=== PATIENT | female | born 1985 | race Caucasian/White ===

== ENCOUNTER 2017-04-01 09:43 | Outpatient (CLI) | payer OTHER ==
[2017-04-01 18:40] LABS: BASOPHILS % (AUTO) 0.6 %; EOSINOPHILS % (AUTO) 0.7 %; HGB - HEMOGLOBIN 13.5 g/dL (12.0-16.0); LYMPHOCYTES # (AUTO) 1.3 10^3/uL (1.5-3.5); LYMPHOCYTES % (AUTO) 28.9 %; MEAN CORPUSCULAR HEMOGLOBIN 30.5 pg (27.0-31.0); MEAN CORPUSCULAR VOLUME 92.7 fL (81.0-99.0); MEAN PLATELET VOLUME 9.3 fL (7.9-10.8); MONOCYTES # (AUTO) 0.6 10^3/uL (0.0-1.0); MONOCYTES % (AUTO) 12.2 %; NEUTROPHILS # (AUTO) 2.7 10^3/uL (1.5-6.6); NEUTROPHILS % (AUTO) 57.6 %; NUCLEATED RED BLOOD CELLS AUTO 0.1 /100WBC; RED BLOOD COUNT 4.43 10^6/uL (4.20-5.40); RED CELL DISTRIBUTION WIDTH 13.4 % (12.0-15.0); UNCORRECTED WHITE BLOOD COUNT 4.6 x10^3/uL; WHITE BLOOD COUNT 4.6 x10^3/uL (4.8-10.8)
[2017-04-01 18:49] LABS: ALBUMIN/GLOBULIN RATIO 1.6 (1.0-2.2); BILIRUBIN,TOTAL 0.9 mg/dL (0.2-1.0); BUN - BLOOD UREA NITROGEN 11 mg/dL (6-20); CALCIUM 9.7 mg/dL (8.5-10.3); CARBON DIOXIDE - CO2 26 mmol/L (21-32); CHLORIDE 101 mmol/L (101-111); CHOL/HDL RATIO 2.4 (<4.4); CHOLESTEROL 172 mg/dL; CREATININE 0.6 mg/dL (0.4-1.0); GFR - MDRD 117 (>89); GLUCOSE 85 mg/dL (70-100); HDL CHOLESTEROL 72 mg/dL; LDL/HDL RATIO 1.1 (<4.4); POTASSIUM 4.3 mmol/L (3.5-5.0); SODIUM 136 mmol/L (135-145); TOTAL PROTEIN 7.2 g/dL (6.7-8.2); TRIGLYCERIDES 111 mg/dL; VLDL CHOLESTEROL 22 mg/dL
[2017-04-01 19:08] LABS: FERRITIN 6.8 ng/mL (11.0-306.8)
[2017-04-01 19:09] LABS: TOTAL T3 1.27 ng/mL (0.87-1.78)
[2017-04-01 19:21] LABS: THYROID STIMULATING HORMONE 1.58 uIU/mL (0.34-5.60)
[2017-04-05 06:56] LABS: T3 REVERSE 19 ng/dL (8-25)
== END 2017-04-01 09:44 | disposition home or self-care (01) ==
LOC: LAB.F 09:43
PROVIDERS: ATTEND Nurse Practitioner Family
DX: Z00.01 Encounter for general adult medical examination with abnormal findings (principal); E55.9 Vitamin D deficiency, unspecified; E78.5 Hyperlipidemia, unspecified; L63.8 Other alopecia areata; F41.9 Anxiety disorder, unspecified
CPT/HCPCS: 36415; 80053; 80061; 82306; 82728; 84436; 84439; 84443; 84480; 84481; 84482; 85025; 86376

== ENCOUNTER 2017-04-17 09:14 | Outpatient (CLI) | payer OTHER ==
[2017-04-17 18:27] LABS: IRON 51 ug/dL (28-170); TOTAL IRON BINDING CAPACITY 413 ug/dL (250-450); TRANSFERRIN 295 mg/dL (192-382)
[2017-04-17 18:42] LABS: PROLACTIN 13.14 ng/mL
[2017-04-17 19:04] LABS: FOLLICLE STIMULATING HORMONE 3.23 mIU/mL
[2017-04-17 19:05] LABS: LUTEINIZING HORMONE 6.29 mIU/mL
[2017-04-20 14:27] LABS: ANA SCREEN NEGATIVE (NEGATIVE)
[2017-04-23 12:12] LABS: TEST RESULT REPORT (())
== END 2017-04-17 09:15 | disposition home or self-care (01) ==
LOC: LAB.F 09:14
PROVIDERS: ATTEND Nurse Practitioner Family
DX: L63.9 Alopecia areata, unspecified (principal)
CPT/HCPCS: 36415; 81599; 82157; 82627; 83001; 83002; 83540; 84146; 84403; 84466; 86038; 86141

== ENCOUNTER 2024-11-05 08:23 | Inpatient (IN) ==
[2024-11-05] MEDS ORDERED: SODIUM CHLORIDE FLUSH 0.9% 10 ML SYRINGE IVP PRN (08:25)
[2024-11-05] MEDS ORDERED: NIFEdipine 10 MG CAPSULE PO PRN (08:25)
[2024-11-05] MEDS ORDERED: PROMETHAZINE 25 MG TABLET PO PRN (08:25)
[2024-11-05] MEDS ORDERED: ACETAMINOPHEN 325 MG TABLET PO PRN (08:25)
[2024-11-05] MEDS ORDERED: lidocaine 1% 20 ML MDV ID PRN (08:25)
[2024-11-05] MEDS ORDERED: METOCLOPRAMIDE 10 MG TABLET PO PRN (08:25)
[2024-11-05] MEDS ORDERED: OXYTOCIN 10 UNIT/ML VIAL IM PRN (08:25)
[2024-11-05] MEDS ORDERED: OXYTOCIN/SODIUM CHLORIDE 500 ML IV PRN (08:25)
[2024-11-05] MEDS ORDERED: METHYLERGONOVINE 0.2 MG/ML VIAL IM PRN (08:25)
[2024-11-05] MEDS ORDERED: ONDANSETRON 4 MG/2 ML VIAL IVP PRN (08:25)
[2024-11-05] MEDS ORDERED: miSOPROStoL 200 MCG TABLET BC PRN (08:25)
[2024-11-05] MEDS ORDERED: ONDANSETRON ODT 4 MG TABLET TL PRN (08:25)
[2024-11-05] MEDS ORDERED: CARBOPROST TROMETHAMINE 250 MCG/ML VIAL IM PRN (08:25)
[2024-11-05] MEDS ORDERED: TRANEXAMIC ACID IN NACL 1,000 MG/100 ML BAG IV PRN (08:25)
[2024-11-05] MEDS ORDERED: LABETALOL 20 MG/4 ML SYRINGE IVP PRN ×3 (08:25)
[2024-11-05] MEDS ORDERED: LACTATED RINGERS 1,000 ML IV PRN (08:25)
[2024-11-05] MEDS ORDERED: hydrALAZINE INJ 20 MG/ML VIAL IVP PRN ×2 (08:25)
[2024-11-05] MEDS ORDERED: AMPICILLIN 2 GM in SODIUM CHLORIDE 0.9% MINIBAG 100 ML IV SCH (08:30)
[2024-11-05] MEDS: miSOPROStoL 100 MCG TABLET BC SCH (11:23)
--- NOTE | 2024-11-05 11:38 | MISCELLANEOUS PROVIDER NOTE ---
Miscellaneous Provider Note - Note: Called for assist with PIV. Multiple failed attempts. Attempt x1 with US at L FA, 20ga IV placed. Easily aspirates and flushes, labs drawn with vacu-tainer, capped, secured. Patient tolerated without complaint.
[2024-11-05 11:53] LABS: BASOPHILS % (AUTO) 0.2 %; EOSINOPHILS % (AUTO) 0.3 %; HCT - HEMATOCRIT 43.2 % (37.0-47.0); HGB - HEMOGLOBIN 14.2 g/dL (12.0-16.0); LYMPHOCYTES # (AUTO) 1.3 10^3/uL (1.5-3.5); LYMPHOCYTES % (AUTO) 12.6 %; MEAN CORPUSCULAR HEMOGLOBIN 31.4 pg (27.0-31.0); MEAN CORPUSCULAR HGB CONC 32.9 g/dL (32.0-36.0); MEAN CORPUSCULAR VOLUME 95.6 fL (81.0-99.0); MEAN PLATELET VOLUME 12.3 fL (7.9-10.8); MONOCYTES # (AUTO) 0.8 10^3/uL (0.0-1.0); MONOCYTES % (AUTO) 8.2 %; NEUTROPHILS # (AUTO) 7.9 10^3/uL (1.5-6.6); NEUTROPHILS % (AUTO) 78.1 %; PLT - PLATELET COUNT 193 10^3/uL (130-450); RED BLOOD COUNT 4.52 10^6/uL (4.20-5.40); WHITE BLOOD COUNT 10.2 x10^3/uL (4.8-10.8)
[2024-11-05 12:10] LABS: ALBUMIN 3.9 g/dL (3.2-5.5); ALBUMIN/GLOBULIN RATIO 1.4 (1.0-2.2); BILIRUBIN,TOTAL 0.4 mg/dL (0.2-1.0); CALCIUM 9.7 mg/dL (8.5-10.3); CREATININE 0.5 mg/dL (0.6-1.3); POTASSIUM 3.8 mmol/L (3.5-4.5); TOTAL PROTEIN 6.7 g/dL (6.4-8.9); URIC ACID 4.3 mg/dL (2.3-6.6)
--- NOTE | 2024-11-05 13:50 | HISTORY & PHYSICAL EXAMINATION ---
Admit History Smoking Status: Never smoker Other Maternal History Other Maternal History: HPI: This 39 yo @ 41+1 weeks by LMP and confirmed by first trimester ultrasound. She was able to get sleep last night but had some intermittent contractions. She's here today for medical induction of labor. She had an elevated BP in the clinic and a second elevated BP upon admission. Urine PCR 0.3, giving her a diagnosis of preEclampsia without severe features. She was examined yesterday in the clinic with an SVE of 2/40/-2, anterior, soft, vtx, intact. She had not felt much had changed since yesterday and declined a repeat exam. SIMEON SCORE:7. She was hoping for a natural onset of labor, but she was amenable to coming in for IOL giving the increased concerns. She has been a midwifery patient, first of [facility]RI[facility] T[facility] at [facility] then transitioned for continuity of midwifery care to [facility] in May,. Her and her , Eloy, have been active participants in group care and completed the prepared childbirth class at [facility]. has remained uncomplicated with the exception of AMA until the last few days. ROS: No Headache, visual changes or right upper quadrant abdominal pain. Denies significant N/V. Denies urinary urgency or dysuria. All other symptoms reviewed and were negative except per HPI. In the event of an emergency, accepts the administration of blood products. Labs: H&H: 14.2/43.2, PLT 193, Serum creatinine 0.5AST 24, ALT 19, uric acid 4.3, LDH 161 Last u/s EFW: 83% @ 20+5 weeks gestation Total maternal weight gain: 37# Specific Issues/Plans LMP: 01/22/24 NAOMI by LMP: 10/28/2024 US:03/16/24 8w4d c/w dates (NAOMI by U/S 10/23/2024) Final NAOMI: 10/28/24 Problems: AMA on LDASA Medical Hx: No significant Surgical Hx: None Social Hx: Monogamous with male partner. Denies current use of alcohol or tobacco, marijuana or other recreational drugs. Reports that she is safe in current relationship. Family Hx: Denies family history of congenital anomalies, Cystic Fibrosis or chromosomal abnormalities ALLERGIES: NKDA RX: Aspirin, PNV Pre- Weight:158 BMI: 23.3 Blood type: O- Rhogam GIVEN 08/12/24 judson Rh: neg Antibody: neg CBC: PLT 283 HCT 45.2 HGB 14.9 RUB:immune VZV: immune HBsAg: Neg HepC: Neg RPR/AB-EIA: NR HIV: Neg PAP:02/2023 - normal GC/CT: COMPLETE @ 36wks HSV: Denies is self and partner Genetic testing: neg Covid: x 2, no booster. Has had covid twice in addition Flu: declined FAS: WNL Placenta: anterior, no previa Cord: 3VC CLARKE: 15.7cm EFW: 403g (83%tile) 50gm OGCT: 152 3HR GTT: ordered 08/12 TDAP: 08/31/2024 RSV: Breast Pump: 08/31/2024 Antibody screen:negative 08/08 3rd trimester H/H 11.9/36.1 PLT 223 3rd trimester RPR- negative GBS: 10/04/2024 positive Delivery plan: Desires unmedicated, low intervention delivery; , has Learning Specialist (Larissa) MOD: Anticipate Contraception: undecided. considering vasectomy Physical exam: Normocephalic, atraumatic Heart RRR w/o M/G/R Lungs CTAB Abdomen gravid, soft, nontender. EFW 3700 FHR baseline 140's, moderate variability, + accelerations, no decelerations Contractions palpate mild, q 1-4.5minutes soft resting tone SVE 2/40/-2, intact, soft, cephalic in office yesterday by BSUS. Has been cephalic through third trimester. Bilateral LE's 1+ to feet Mood is good, anxious but good. Assessment: 39 yo @ 41+1 weeks gestation by 8+4 week ultrasound Preeclampsia without severe features Post dates Advanced maternal age FHR 140's Cat I GBS POSITIVE Plan: Medical IOL for preeclampsia IV placement then Misoprostol administration Will begin with misoprostol 25mcg BC q 4 hours as long as administration can be done safely within unit protocol GBS+ will plan to start ampicilin with active labor or ROM RH negative. Will need cord blood and rhogam/ work up if indicated Minimize SVE as they are distressing to Lynnette Plans for taking placenta home to plant in garden RN team to contact with any concern for or maternal wellbeing. Support pain management or unmedicated labor options as guided by Lynnette. Baby Med plan: Okay with Vitamin K and erythromycin. Holding on hepatitis B vaccine. Reviewed plan of care with design printer [facility] Meds/Allgy Home Medications Ambulatory Orders Medication Instructions Recorded Confirmed aspirin 81 mg tablet,delayed 81 mg PO QDAY 07/06/24 11/06/24 release (Adult Aspirin Regimen) vitamins no.159-iron 1 tab PO DAILY 07/06/24 11/06/24 fumarate 28 mg-folic acid 800 mcg tablet ( Vitamin) cholecalciferol (vitamin D3) 100 100 mcg PO QDAY 10/11/24 11/06/24 mcg (4,000 unit) tablet magnesium 200 mg tablet 200 mg PO QDAY 10/11/24 11/06/24 Allergies Allergies Allergy/AdvReac Type Severity Reaction Status Date / Time pollen extracts Allergy Unknown Unknown Verified 11/01/24 16:49 molds Allergy Unknown Unknown Uncoded 11/01/24 16:49 PFSH Active Problems All Active Problems (Updated 11/04/24 @ 14:49 by Jazz Butler RN) Post-dates (Acute) Rh negative status during (Acute) Elevated blood pressure reading in office without diagnosis of hypertension (Acute) Advanced maternal age (AMA) in (Acute) Pelvic pain in antepartum period in third trimester (Acute) (Acute) Normal first in second trimester (Acute) Supervision of normal first in second trimester (Acute) Medical History Medical History (Updated 11/04/24 @ 14:49 by Jazz Butler RN) Painful menstrual periods Panic disorder Anxiety Depression Mental health disorder Autoimmune disease Family History Family History (Updated 07/28/24 @ 09:29 by Alicia Rogers MA) Grandmother Congenital heart disease Diabetes Thyroid disease Grandfather High blood pressure CVA (cerebral vascular accident) Aunt CVA (cerebral vascular accident) High blood pressure Uncle CVA (cerebral vascular accident) High blood pressure Father Cancer High blood pressure Mother Depressed History of multiple miscarriages Social History Social History (Updated 07/06/24 @ 18:36 by Anisa Crespo MA) Smoking Status: Never smoker Do you dip or chew tobacco?: No ETOH Use: None ETOH Use Details: stopped for Substance Use: former substance user Substance Use Details: marijuana Plan for Labor Plan For Labor I expect patient to be DC'd or transferred within 96 hours.: Yes Conclusion/Plan Lab Results 11/05/24 11:25 11/05/24 11:25
--- NOTE | 2024-11-05 20:58 | PROVIDER PROGRESS NOTE ---
Subjective Prog Note Date Prog Note Date: 11/05/24 Prog Note Time: 21:00 Subjective Subjective: S/O: Doing well. Breathing through contractions. Doing nipple stim as well. Has been very active in room. Feeling increasing discomfort with contractions. Category I tracing. + accelerations, - decelerations. S/P x2 doses of 25mcg misoprostol. Overall reassuring with moderate variability maintained throughout. Contractions palpate mild-moderate intermittently with soft resting tone. Lynette regularly. q 2-3 minutes. more discomfort and breathing through contractions. Declines SVE. A: 39 yo @ 41+1wks gestation by LMP c/w 8+4 wk U/S MEDICAL IOL FHR Category I PreElamsia without severe features AMA GBS Positive Rh Neg P: Will hold on misoprostol until 2300 if pain worse, RN will do SVE. If pain subsides will plan for another 25mcg BC misoprostol. Continuous monitoring. Support Lynnette's desires for low intervention/ unmedicated delivery. If she changes her position on pain management, will support based on her request Current Medications Current Medications Current Medications: Current Medications Generic Name Dose Route Start Last Admin Trade Name Freq PRN Reason Stop Dose Admin Acetaminophen 650 mg 11/05/24 08:25 Acetaminophen 325 Mg Tablet PO Q6H PRN Mild Pain or Fever>38C(100.4F) Carboprost Tromethamine 250 mcg 11/05/24 08:25 Carboprost Tromethamine 250 Mcg/Ml Vial IM 11/10/24 08:26 Q15M PRN Step 4: Hemorrhage protocol Hydralazine HCl 5 - 20 mg 11/05/24 08:25 Hydralazine Inj 20 Mg/Ml Vial IVP Q20M PRN SBP >160 or DBP >110 Protocol Hydralazine HCl 10 mg 11/05/24 08:25 Hydralazine Inj 20 Mg/Ml Vial IVP 11/10/24 08:26 .ONCE PRN Step 9 of Labetalol protocol Protocol Lactated Ringer's 1,000 mls @ 100 mls/hr 11/05/24 08:25 Lr IV .Q10H PRN Save for active labor Oxytocin/Sodium Chloride 500 mls @ 999 mls/hr 11/05/24 08:25 Pitocin/Sodium Chloride IV 11/10/24 08:26 PRN PRN POST- HEMORR PREVENTION Protocol 999 MILLIUNIT/MIN Tranexamic Acid 1,000 mg in 100 mls @ 600 mls/hr 11/05/24 08:25 Tranexamic 1,000 Mg/100ml-Nacl IV 11/10/24 08:26 .ONCE PRN EBL >1200mL and within 3hr Ampicillin Sodium 1 gm/ Sodium 100 mls @ 200 mls/hr 11/05/24 09:00 Chloride IV Q4H LJ Labetalol HCl 20 - 80 mg 11/05/24 08:25 Labetalol 20 Mg/4 Ml Syringe IVP Q10M PRN SBP >160 or DBP >110 Protocol Labetalol HCl 20 mg 11/05/24 08:25 Labetalol 20 Mg/4 Ml Syringe IVP 11/10/24 08:26 .ONCE PRN Step 9 of nifedipine protocol Protocol Lidocaine HCl 20 ml 11/05/24 08:25 Lidocaine 1% 20 Ml Mdv ID 11/10/24 08:26 .ONCE PRN PERINEAL REPAIR Methylergonovine Maleate 0.2 mg 11/05/24 08:25 Methylergonovine 0.2 Mg/Ml Vial IM 11/10/24 08:26 .ONCE PRN Step 2: Hemorrhage protocol Metoclopramide HCl 10 mg 11/05/24 08:25 Metoclopramide 10 Mg Tablet PO Q6H PRN Nausea / Vomiting Misoprostol 25 mcg 11/05/24 09:00 11/05/24 15:44 Misoprostol 100 Mcg Tablet BC 25 mcg Q4HR LJ Administration Misoprostol 800 mcg 11/05/24 08:25 Misoprostol 200 Mcg Tablet BC 11/10/24 08:26 .ONCE PRN Step 3: Hemorrhage protocol Nifedipine 10 - 20 mg 11/05/24 08:25 Nifedipine 10 Mg Capsule PO Q20M PRN SBP >160 or DBP >110 Protocol Ondansetron HCl 4 mg 11/05/24 08:25 Ondansetron Odt 4 Mg Tablet TL Q4HR PRN Nausea / Vomiting Ondansetron HCl 4 mg 11/05/24 08:25 Ondansetron 4 Mg/2 Ml Vial IVP Q4HR PRN Nausea / Vomiting Oxytocin 10 unit 11/05/24 08:25 Oxytocin 10 Unit/Ml Vial IM 11/10/24 08:26 .ONCE PRN Step one: If no IV access Promethazine HCl 25 mg 11/05/24 08:25 Promethazine 25 Mg Tablet PO Q6H PRN Nausea / Vomiting Sodium Chloride 10 ml 11/05/24 09:00 Sodium Chloride Flush 0.9% 10 Ml Syringe IVP 0100,0900,1700 LJ Sodium Chloride 10 ml 11/05/24 08:25 Sodium Chloride Flush 0.9% 10 Ml Syringe IVP PRN PRN NEEDED PER PROVIDER ORDERS Objective Lab Results 11/05/24 11:25 11/05/24 11:25 Other Labs: Lab Results x24hrs 11/05/24 11/05/24 Range/Units 11:58 11:25 WBC 10.2 (4.8-10.8) x10^3/uL RBC 4.52 (4.20-5.40) 10^6/uL Hgb 14.2 (12.0-16.0) g/dL Hct 43.2 (37.0-47.0) % MCV 95.6 (81.0-99.0) fL MCH 31.4 H (27.0-31.0) pg MCHC 32.9 (32.0-36.0) g/dL RDW 13.0 (12.0-15.0) % Plt Count 193 (130-450) 10^3/uL MPV 12.3 H (7.9-10.8) fL Neut # (Auto) 7.9 H (1.5-6.6) 10^3/uL Lymph # (Auto) 1.3 L (1.5-3.5) 10^3/uL [place] # (Auto) 0.8 (0.0-1.0) 10^3/uL Eos # (Auto) 0.0 (0.0-0.7) 10^3/uL Baso # (Auto) 0.0 (0.0-0.1) 10^3/uL Absolute Nucleated RBC 0.00 x10^3/uL Nucleated RBC % 0.0 /100WBC Sodium 134 L (135-145) mmol/L Potassium 3.8 (3.5-4.5) mmol/L Chloride 102 (101-111) mmol/L Carbon Dioxide 23 (21-32) mmol/L Anion Gap 9.0 (6-13) BUN 6 (6-20) mg/dL Creatinine 0.5 L (0.6-1.3) mg/dL Estimated GFR (MDRD) 137 (>89) Glucose 80 (74-104) mg/dL Uric Acid 4.3 (2.3-6.6) mg/dL Calcium 9.7 (8.5-10.3) mg/dL Total Bilirubin 0.4 (0.2-1.0) mg/dL AST 24 (10-42) IU/L ALT 19 (10-60) IU/L Alkaline Phosphatase 232 H (42-121) IU/L Lactate Dehydrogenase 161 (140-271) IU/L Total Protein 6.7 (6.4-8.9) g/dL Albumin 3.9 (3.2-5.5) g/dL Globulin 2.8 (2.1-4.2) g/dL Albumin/Globulin Ratio 1.4 (1.0-2.2) Blood Type O NEGATIVE Blood Type Recheck O NEGATIVE Antibody Screen NEGATIVE
[2024-11-06] MEDS ORDERED: AMPICILLIN 2 GM VIAL IV ONE (00:47)
[2024-11-06] MEDS: AMPICILLIN 2 GM in SODIUM CHLORIDE 0.9% MINIBAG 100 ML IV ONE ×2 (02:11→04:39)
[2024-11-06] MEDS: AMPICILLIN 1 GM in SODIUM CHLORIDE 0.9% MINIBAG 100 ML IV SCH ×2 (02:11→08:50)
[2024-11-06] MEDS: SODIUM CHLORIDE FLUSH 0.9% 10 ML SYRINGE IVP SCH (02:11)
--- NOTE | 2024-11-06 09:20 | PROVIDER PROGRESS NOTE ---
Subjective Prog Note Date Prog Note Date: 11/06/24 Prog Note Time: 09:18 Subjective Subjective: S: Breathing more and more through contractions. Feeling distinctly more uncomfortable. No other misoprostol given throughout the night. Antibiotics started at 0500 for GBS prophalaxis. O:5/70/-2, head well applied to cervix. Declined membrane sweep and AROM. Category I FHT, lex q 2-3.5, palpating moderately A: 39 yo @ 41+2 wks gestation by LMP c/w 8+4 wk U/S MEDICAL IOL PreEclampsia without severe features FHR Category I GBS POSITIVE - prophalyxis initiated at 0500. RH Neg P: Significant cervical change, regular contractions and increasing pain with contractions. Will plan to introduce intervention with cessation of progress. support preferences while moving towards delivery encourage frequent positional changes Anticipate . Current Medications Current Medications Current Medications: Current Medications Generic Name Dose Route Start Last Admin Trade Name Freq PRN Reason Stop Dose Admin Acetaminophen 650 mg 11/05/24 08:25 Acetaminophen 325 Mg Tablet PO Q6H PRN Mild Pain or Fever>38C(100.4F) Carboprost Tromethamine 250 mcg 11/05/24 08:25 Carboprost Tromethamine 250 Mcg/Ml Vial IM 11/10/24 08:26 Q15M PRN Step 4: Hemorrhage protocol Hydralazine HCl 5 - 20 mg 11/05/24 08:25 Hydralazine Inj 20 Mg/Ml Vial IVP Q20M PRN SBP >160 or DBP >110 Protocol Hydralazine HCl 10 mg 11/05/24 08:25 Hydralazine Inj 20 Mg/Ml Vial IVP 11/10/24 08:26 .ONCE PRN Step 9 of Labetalol protocol Protocol Lactated Ringer's 1,000 mls @ 100 mls/hr 11/05/24 08:25 Lr IV .Q10H PRN Save for active labor Oxytocin/Sodium Chloride 500 mls @ 999 mls/hr 11/05/24 08:25 Pitocin/Sodium Chloride IV 11/10/24 08:26 PRN PRN POST- HEMORR PREVENTION Protocol 999 MILLIUNIT/MIN Tranexamic Acid 1,000 mg in 100 mls @ 600 mls/hr 11/05/24 08:25 Tranexamic 1,000 Mg/100ml-Nacl IV 11/10/24 08:26 .ONCE PRN EBL >1200mL and within 3hr Ampicillin Sodium 1 gm/ Sodium 100 mls @ 200 mls/hr 11/06/24 08:00 11/06/24 08:50 Chloride IV 200 mls/hr Q4H LJ Administration Labetalol HCl 20 - 80 mg 11/05/24 08:25 Labetalol 20 Mg/4 Ml Syringe IVP Q10M PRN SBP >160 or DBP >110 Protocol Labetalol HCl 20 mg 11/05/24 08:25 Labetalol 20 Mg/4 Ml Syringe IVP 11/10/24 08:26 .ONCE PRN Step 9 of nifedipine protocol Protocol Lidocaine HCl 20 ml 11/05/24 08:25 Lidocaine 1% 20 Ml Mdv ID 11/10/24 08:26 .ONCE PRN PERINEAL REPAIR Methylergonovine Maleate 0.2 mg 11/05/24 08:25 Methylergonovine 0.2 Mg/Ml Vial IM 11/10/24 08:26 .ONCE PRN Step 2: Hemorrhage protocol Metoclopramide HCl 10 mg 11/05/24 08:25 Metoclopramide 10 Mg Tablet PO Q6H PRN Nausea / Vomiting Misoprostol 25 mcg 11/05/24 09:00 11/06/24 02:13 Misoprostol 100 Mcg Tablet BC Not Given Q4HR [facility] Misoprostol 800 mcg 11/05/24 08:25 Misoprostol 200 Mcg Tablet BC 11/10/24 08:26 .ONCE PRN Step 3: Hemorrhage protocol Nifedipine 10 - 20 mg 11/05/24 08:25 Nifedipine 10 Mg Capsule PO Q20M PRN SBP >160 or DBP >110 Protocol Ondansetron HCl 4 mg 11/05/24 08:25 Ondansetron Odt 4 Mg Tablet TL Q4HR PRN Nausea / Vomiting Ondansetron HCl 4 mg 11/05/24 08:25 Ondansetron 4 Mg/2 Ml Vial IVP Q4HR PRN Nausea / Vomiting Oxytocin 10 unit 11/05/24 08:25 Oxytocin 10 Unit/Ml Vial IM 11/10/24 08:26 .ONCE PRN Step one: If no IV access Promethazine HCl 25 mg 11/05/24 08:25 Promethazine 25 Mg Tablet PO Q6H PRN Nausea / Vomiting Sodium Chloride 10 ml 11/05/24 09:00 11/06/24 04:30 Sodium Chloride Flush 0.9% 10 Ml Syringe IVP 10 ml 0100,0900,1700 LJ Administration Sodium Chloride 10 ml 11/05/24 08:25 Sodium Chloride Flush 0.9% 10 Ml Syringe IVP PRN PRN NEEDED PER PROVIDER ORDERS Objective Vital Signs/Intake & Output Intake & Output: Intake & Output 11/03/24 11/04/24 11/05/24 11/06/24 23:59 23:59 23:59 23:59 Intake Total 100 / 100 Balance 100 / 100 Lab Results 11/05/24 11:25 11/05/24 11:25 Other Labs: Lab Results x24hrs 11/05/24 11/05/24 Range/Units 11:58 11:25 WBC 10.2 (4.8-10.8) x10^3/uL RBC 4.52 (4.20-5.40) 10^6/uL Hgb 14.2 (12.0-16.0) g/dL Hct 43.2 (37.0-47.0) % MCV 95.6 (81.0-99.0) fL MCH 31.4 H (27.0-31.0) pg MCHC 32.9 (32.0-36.0) g/dL RDW 13.0 (12.0-15.0) % Plt Count 193 (130-450) 10^3/uL MPV 12.3 H (7.9-10.8) fL Neut # (Auto) 7.9 H (1.5-6.6) 10^3/uL Lymph # (Auto) 1.3 L (1.5-3.5) 10^3/uL [place] # (Auto) 0.8 (0.0-1.0) 10^3/uL Eos # (Auto) 0.0 (0.0-0.7) 10^3/uL Baso # (Auto) 0.0 (0.0-0.1) 10^3/uL Absolute Nucleated RBC 0.00 x10^3/uL Nucleated RBC % 0.0 /100WBC Sodium 134 L (135-145) mmol/L Potassium 3.8 (3.5-4.5) mmol/L Chloride 102 (101-111) mmol/L Carbon Dioxide 23 (21-32) mmol/L Anion Gap 9.0 (6-13) BUN 6 (6-20) mg/dL Creatinine 0.5 L (0.6-1.3) mg/dL Estimated GFR (MDRD) 137 (>89) Glucose 80 (74-104) mg/dL Uric Acid 4.3 (2.3-6.6) mg/dL Calcium 9.7 (8.5-10.3) mg/dL Total Bilirubin 0.4 (0.2-1.0) mg/dL AST 24 (10-42) IU/L ALT 19 (10-60) IU/L Alkaline Phosphatase 232 H (42-121) IU/L Lactate Dehydrogenase 161 (140-271) IU/L Total Protein 6.7 (6.4-8.9) g/dL Albumin 3.9 (3.2-5.5) g/dL Globulin 2.8 (2.1-4.2) g/dL Albumin/Globulin Ratio 1.4 (1.0-2.2) Blood Type O NEGATIVE Blood Type Recheck O NEGATIVE Antibody Screen NEGATIVE
--- NOTE | 2024-11-06 12:38 | PHARMACY PROGRESS NOTE ---
Best Possible Medication History Admit Date and Time: 11/05/24 0826 Home Medications Medication Instructions Recorded Confirmed Type aspirin 81 mg tablet,delayed 81 mg PO QDAY 07/06/24 11/06/24 History release (Adult Aspirin Regimen) vitamins no.159-iron 1 tab PO DAILY 07/06/24 11/06/24 History fumarate 28 mg-folic acid 800 mcg tablet ( Vitamin) cholecalciferol (vitamin D3) 100 100 mcg PO QDAY 10/11/24 11/06/24 History mcg (4,000 unit) tablet magnesium 200 mg tablet 200 mg PO QDAY 10/11/24 11/06/24 History Processed by: Pharmacy Medications reviewed in ED?: No Medication History completed: Yes Patient Interview: Completed Secondary Source(s): Insurance records [facility] Statement: Per [facility] insurance records and RN interview. As the person ultimately responsible for medication therapy, providers are able to order a medication from an existing home medication list in [facility] via the "Reconcile Routine" prior to Confirmation of that medication by applications support specialist. Such practice is discouraged except when the physician, in their clinical judgment, deems that a medical need exists for a medication without regard to previous use.
--- NOTE | 2024-11-06 18:15 | PROVIDER PROGRESS NOTE ---
Labor Progress Note Labor Progress Note Labor Progress Note/Additional Text: /-2, AROM, scant amount of clear fluid, bloody show to glove BP have been overall WNL Continues to labor unmedicated, brief use of nitrous oxide. Increased swelling but limited to feet. No headaches or changes to vision, no RUQ pain Plan: Contractions spacing out. Discussed introducing oxytocin to bring contractions closer together.
[2024-11-06] MEDS ORDERED: LIDOCAINE JELLY 2% 6 ML JEL.PF.APP TOP PRN (18:23)
--- NOTE | 2024-11-06 19:13 | PROVIDER PROGRESS NOTE ---
Labor Progress Note Labor Progress Note Labor Progress Note/Additional Text: SVE unchanged from previous exam /-2 at time of AROM very discouraged. Open to pitocin augmentation to increase power behind the contractions. Will begin low dose pitocin per unit protocol
[2024-11-06] MEDS: LACTATED RINGERS 1,000 ML IV PRN (19:20)
[2024-11-06] MEDS: OXYTOCIN/SODIUM CHLORIDE 500 ML IV SCH (19:21)
[2024-11-06] MEDS ORDERED: ROPIVACAINE 0.2% 200 MG/100 ML BAG EP ONE (21:20)
[2024-11-06] MEDS ORDERED: LIDOCAINE 2%-EPI 1:100000 20 ML MDV ONE (21:20)
[2024-11-06] MEDS ORDERED: diphenhydrAMINE INJ 50 MG/ML VIAL IVP PRN (22:07)
[2024-11-06] MEDS ORDERED: ePHEDrine 50 MG/ML VIAL IVP PRN (22:07)
[2024-11-06] MEDS ORDERED: ONDANSETRON 4 MG/2 ML VIAL IVP PRN (22:07)
[2024-11-06] MEDS ORDERED: NALOXONE 0.4 MG/ML VIAL IVP PRN (22:07)
[2024-11-06] MEDS ORDERED: NALBUPHINE 10 MG/ML AMP IVP PRN (22:07)
[2024-11-06] MEDS ORDERED: METOCLOPRAMIDE 10 MG/2 ML VIAL IVP PRN (22:07)
[2024-11-06] MEDS ORDERED: LACTATED RINGERS 500 ML IV ONE (22:07)
--- NOTE | 2024-11-06 22:09 | ANESTHESIA PROCEDURE NOTE ---
Pre-Anesthesia VS, & Labs Diagnosis Surgical Diagnosis:: term labor Procedure Procedure: epidural for NPO NPO: >8 hours Last Fluid Intake: t/o day Last Food Intake: dinner Is Patient ?: Yes Lab Results Current Lab Results: Laboratory Tests 11/05/24 11:58: Blood Type Recheck O NEGATIVE 11/05/24 11:25: WBC 10.2, RBC 4.52, Hgb 14.2, Hct 43.2, MCV 95.6, MCH 31.4 H, MCHC 32.9, RDW 13.0, Plt Count 193, MPV 12.3 H, Neut # (Auto) 7.9 H, Lymph # (Auto) 1.3 L, [place] # (Auto) 0.8, Eos # (Auto) 0.0, Baso # (Auto) 0.0, Absolute Nucleated RBC 0.00, Nucleated RBC % 0.0, Sodium 134 L, Potassium 3.8, Chloride 102, Carbon Dioxide 23, Anion Gap 9.0, BUN 6, Creatinine 0.5 L, Estimated GFR (MDRD) 137, Glucose 80, Uric Acid 4.3, Calcium 9.7, Total Bilirubin 0.4, AST 24, ALT 19, Alkaline Phosphatase 232 H, Lactate Dehydrogenase 161, Total Protein 6.7, Albumin 3.9, Globulin 2.8, Albumin/Globulin Ratio 1.4, Blood Type O NEGATIVE, Antibody Screen NEGATIVE Lab results reviewed: Yes 11/05/24 11:25 11/05/24 11:25 Meds/Allgy Home Medications Ambulatory Orders Medication Instructions Recorded Confirmed aspirin 81 mg tablet,delayed 81 mg PO QDAY 07/06/24 11/06/24 release (Adult Aspirin Regimen) vitamins no.159-iron 1 tab PO DAILY 07/06/24 11/06/24 fumarate 28 mg-folic acid 800 mcg tablet ( Vitamin) cholecalciferol (vitamin D3) 100 100 mcg PO QDAY 10/11/24 11/06/24 mcg (4,000 unit) tablet magnesium 200 mg tablet 200 mg PO QDAY 10/11/24 11/06/24 Allergies Allergies Allergy/AdvReac Type Severity Reaction Status Date / Time pollen extracts Allergy Unknown Unknown Verified 11/01/24 16:49 molds Allergy Unknown Unknown Uncoded 11/01/24 16:49 PFSH Active Problems All Active Problems (Updated 11/04/24 @ 14:49 by Jazz Butler, BRET) Post-dates (Acute) Rh negative status during (Acute) Elevated blood pressure reading in office without diagnosis of hypertension (Acute) Advanced maternal age (AMA) in (Acute) Pelvic pain in antepartum period in third trimester (Acute) (Acute) Normal first in second trimester (Acute) Supervision of normal first in second trimester (Acute) Medical History Medical History (Updated 11/04/24 @ 14:49 by Jazz Butler RN) Painful menstrual periods Panic disorder Anxiety Depression Mental health disorder Autoimmune disease Surgical History Surgical History (Updated 11/06/24 @ 22:08 by Smooth Greene CRNA) [place] teeth extracted Family History Family History (Updated 07/28/24 @ 09:29 by Alicia Rogers MA) Grandmother Congenital heart disease Diabetes Thyroid disease Grandfather High blood pressure CVA (cerebral vascular accident) Aunt CVA (cerebral vascular accident) High blood pressure Uncle CVA (cerebral vascular accident) High blood pressure Father Cancer High blood pressure Mother Depressed History of multiple miscarriages Social History Social History (Updated 07/06/24 @ 18:36 by Anisa Crespo MA) Smoking Status: Never smoker Do you dip or chew tobacco?: No ETOH Use: None ETOH Use Details: stopped for Substance Use: former substance user Substance Use Details: marijuana Anesthesia Exam (Expanded) Exam General: Alert, Oriented x3 and Mild distress Dental: WNL Mouth Openin Fingerbreadth Neck Mobility: Normal Mallampati classification: II Respiratory: No respiratory distress Cardiovascular: Regular rate Neurological: Normal speech Mental/Cognitive Status: Alert/Oriented X3 and Normal for patient Plan Plan Anesthesia Type: Epidural Consent for Procedure(s) Verified and Reviewed: Yes Code Status: Attempt Resuscitation ASA Classification ASA classification: 2-Mild systemic disease Is this case an emergency?: No
[2024-11-07] MEDS: ROPIVACAINE 0.2% 200 MG/100 ML BAG EP PRN (03:54)
--- NOTE | 2024-11-07 04:01 | DELIVERY NOTE ---
Delivery Note Delivery Comments (Free Text/Narrative) Delivery Comments (Free Text/Narrative): This 39-year-old, @ 41+3 weeks gestation by 8+4 week ultrasound/ LMP presented on the morning of 11/05/2024 for medical induction of labor for prec- eclampsia diagnosis. Cervix was estimated unchanged from the clinic /3, and Vertex presentation by BSUS and exam. Ramon score 7. GBS positive, treated. Misprostol 25mcg BC x2 doses, oxytocin maximum infusion of 8mu/min. . FHR pattern demonstrated 140 baseline in a category I prior to second stage. Normal labor course. Epidural placed upon maternal request. AROM occurred @ approximately 1730 on 11/06/2024. Initially minimal fluid but later thin to moderate meconium. She then progressed to complete/complete @ 0152 on 11/07/2024 and second stage began. Pediatrics and respiratory therapy were asked to stand by for delivery. : Normal spontaneous vaginal delivery of a viable female on 11/07/2024 @ 0434. The was placed on maternal abdomen, stimulated, dried and placed skin to skin. Apgars 8 & 9 @ 1 & 5 minutes. The umbilical cord was clamped after approximately 1 minute of delayed cord clamping. It was doubly clamped by delivering provider and cut by FOB. 3VC. Cord blood was obtained. Fundal massage and gentle cord traction applied for active management of the third stage, placenta delivered spontaneously and intact and appeared normal within 10 minutes of delivery. EBL 250cc. Placenta was not sent to pathology. Pitocin administered via IV for hemostasis and allowed to run freely. Uterine massage was performed until uterus was deemed firm. weight pending at this time. Inspection of the perineum noted an 1st degree midline laceration. The laceration was repaired under epidural anesthesia with running 3-0 vicryl rapide, repaired in standards fashion under sterile conditions. Upon re- inspection the patient was hemostatic. Uterus again massaged and found to be firm. Needle and sponge counts were correct. Uterine fundus firm and there is no excessive bleeding. Tissues well approximated. Skin to skin initiated. Family bonding well. Both mother and baby are in stable condition.
[2024-11-07] MEDS ORDERED: NALOXONE 0.4 MG/ML VIAL IVP PRN (05:01)
[2024-11-07] MEDS ORDERED: hydrALAZINE INJ 20 MG/ML VIAL IVP PRN ×2 (05:01)
[2024-11-07] MEDS ORDERED: NIFEdipine 10 MG CAPSULE PO PRN (05:01)
[2024-11-07] MEDS ORDERED: OXYTOCIN/SODIUM CHLORIDE 500 ML IV PRN (05:01)
[2024-11-07] MEDS ORDERED: LABETALOL 5 MG/1 ML 20 ML MDV IVP PRN (05:01)
[2024-11-07] MEDS ORDERED: LABETALOL 20 MG/4 ML SYRINGE IVP PRN ×2 (05:01)
[2024-11-07] MEDS ORDERED: SIMETHICONE CHEW 80 MG TABLET PO PRN (05:01)
[2024-11-07] MEDS: IBUPROFEN 600 MG TABLET PO PRN (07:30)
[2024-11-07] MEDS: ACETAMINOPHEN 500 MG TABLET PO PRN (07:31)
[2024-11-07] MEDS: DOCUSATE SODIUM 100 MG CAPSULE PO SCH (10:18)
[2024-11-07 22:01] VITALS: O2SAT 98
[2024-11-08 06:12] LABS: ALBUMIN 2.9 g/dL (3.2-5.5); ALBUMIN/GLOBULIN RATIO 1.2 (1.0-2.2); BILIRUBIN,TOTAL 0.3 mg/dL (0.2-1.0); CALCIUM 8.4 mg/dL (8.5-10.3); CREATININE 0.5 mg/dL (0.6-1.3); POTASSIUM 4.5 mmol/L (3.5-4.5); TOTAL PROTEIN 5.4 g/dL (6.4-8.9)
[2024-11-08 11:09] VITALS: BP 127/75; TEMP 97.9
--- NOTE | 2024-11-08 11:12 | Discharge Summary ---
Discharge Summary ALLERGIES Allergies Allergy/AdvReac Type Severity Reaction Status Date / Time pollen extracts Allergy Unknown Unknown Verified 11/01/24 16:49 molds Allergy Unknown Unknown Uncoded 11/01/24 16:49 LABS 11/05/24 11:25 11/08/24 05:46 FOLLOW UP Follow Up: Date of Admission: 11/05/2024 Date of Discharge: 11/08/2024 Diagnosis on admission: 39 yo @ 41+1 weeks gestation by 8+4 week ultrasound Preeclampsia without severe features Post dates Advanced maternal age FHR 140's Cat I GBS POSITIVE Diagnosis on Discharge 39 yo S/p 11/07/2024 @ 0434 Preeclampsia without severe features Serum lab work on day of discharge without significant abnormalities. Stable at discharge Physical exam: Normocephalic, atraumatic Heart RRR w/o M/G/R Lungs CTAB Normal uterine involution, FF below umbilicus Small/ scant rubra bleeding Minimal perineal discomfort. Bilateral LE's no edema Mood is good. Brief History: She is a patient of [facility] who presented on 11/05/2024 for scheduled medical induction of labor after diagnosis of preeclampsia without severe features. She received misoprostol 25mcg BC x2 doses, and low dose oxytocin. She had an epidural for pain management. Meconium stained amniotic fluid. 11/07/2024 @ 0434. EBL 250cc. She has been doing well in her course. She is ambulating and tolerating a regular diet. She is urinating without difficulty and her lochia is normal. Her pain is well controlled without narcotic management. She will be discharged to home today on day 1 and encouraged IBU, tylenol and stool softeners PRN. She has been given precautions to call if she has any new or worsening sx such as fevers, chills, abdominal pain, increasing bleeding, or foul smelling vaginal lochia. preeclamptic precautions reviewed as well. Reminded to continue to wear her blue preE bracelet. Will follow-up Thursday11/14/2024 @ 1200 THV. She will be taking daily Blood pressures and will be contacting providers with any abnormal results this results leading up to the visit. She may need to be seen earlier depending on these results. TIME SPENT Time Spent in Discharge (Minutes): 30 Discharge Plan Discharge Patient Disposition: Home, Self Care Prescriptions: Discontinued cholecalciferol (vitamin D3) 100 mcg (4,000 unit) tablet 100 mcg PO QDAY magnesium 200 mg tablet 200 mg PO QDAY aspirin [Adult Aspirin Regimen] 81 mg tablet,delayed release (DR/EC) 81 mg PO QDAY Vitamin 28 mg iron- 800 mcg tablet 1 tab PO DAILY Print Language: Estonian
--- NOTE | 2024-11-08 15:13 | Labor Flowsheet ---
Labor Flowsheet Datetime Report Generated by CPN: 11/08/2024 15:13 Datetime: 11/08/2024 11:08 VITAL SIGNS NBP Sys/Marybeth/Mean (mmHg): 127 : 75 : 86 Pulse: 82 Datetime: 11/07/2024 06:00 Respirations: 16 PAIN Pain Scale: 2 Datetime: 11/07/2024 05:53 SpO2 (%): 98 Datetime: 11/07/2024 05:30 Temperature Route: Oral Datetime: 11/07/2024 04:38 Stage of : Recovery Datetime: 11/07/2024 04:32 FHR Baseline Rate : 145 Datetime: 11/07/2024 04:28 Frequency (min): 2-3 Duration (sec): 60+ Decelerations: Variable Datetime: 11/07/2024 04:23 Communication Comments: time out for possible shoulder dys Datetime: 11/07/2024 04:17 UTERINE ACTIVITY Monitor Mode: Palpation Datetime: 11/07/2024 04:12 Strip Reviewed by: mk COMMUNICATION Communication: RN at Bedside; RN Reviewed Strip; Provider at Bedside Datetime: 11/07/2024 04:04 Variability: Moderate 6-25 bpm Datetime: 11/07/2024 04:01 LaborFlag: Labor Datetime: 11/07/2024 03:43 Quality: Strong Pitocin Checklist: At Least 1 Acceleration of 15 bpm x 15 Seconds in 30 Minutes or Adequate Variabi lity; No More than 1 Late Deceleration Occurred in Past 30 Minutes; No More than 2 Variable Decelerat ions > 60 Seconds in Duration and decreasing >60 bpm in 30 minutes; No More than 5 Uterine Contractio ns in 10 Minutes for any 20 Minute Interval; Uterus Palpates Soft between Contractions FHR Baseline Changes: No Baseline Change Accelerations: 15X15 Datetime: 11/07/2024 03:27 MEDICATIONS Pitocin (milliunits): Increased to @ Medication Comments: per provider Datetime: 11/07/2024 03:08 Pattern: Normal: <= 5 Contractions in 10 Minutes Resting Tone (Palpate): Relaxed Datetime: 11/07/2024 02:03 Category: Category I Provider Notified (Name): Michelle, RT Datetime: 11/07/2024 01:53 Station: 3 Vaginal Bleeding: None Cervix, Consistency: Soft Notification Reason: Status Update; Labor Status Datetime: 11/07/2024 01:52 VAGINAL EXAM Dilatation (cm): 10.0 Effacement (%): 100 Exam by: M. Boaz, RN Datetime: 11/07/2024 01:09 ASSESSMENT A Monitor Mode: External US Datetime: 11/07/2024 00:41 Monitor Interventions for UA: [place] Adjusted Datetime: 11/07/2024 00:30 Temperature (C): 36.9 Datetime: 11/07/2024 00:16 PATIENT CARE Patient Position/Activity: Right Lateral Hygiene: Piper Care Datetime: 11/06/2024 23:10 Anesthesia Level Check: T10- Umbilicus Datetime: 11/06/2024 23:00 Pain Assessment Comments: 2 Datetime: 11/06/2024 22:08 Amniotic Fluid Color: Light Meconium Amniotic Fluid Amount: Moderate Datetime: 11/06/2024 22:03 Pain Relief Measures: Epidural Given Pain Coping: Talking Through Contractions; Breathing Through Contractions I/O Interventions: Varghese Cath Inserted Datetime: 11/06/2024 21:42 Epidural Procedure: Loading Dose Datetime: 11/06/2024 21:30 PROCEDURE TIME OUT Procedure Verify: Correct Patient Identity; Correct Side and Site are Marked; Accurate Procedure Co nsent Form; Agreement on Procedure to be Done; Correct Patient Position; Relevant Images and Results are Properly Labeled and Displayed; Addressed Need to Administer Antibiotics or Fluids for Irrigation ; Safety Precautions Based on Patient History or Medication Use ANESTHESIA Anesthesia Plans: Epidural Epidural Positioning: Sitting Datetime: 11/06/2024 21:11 Anesthesia Comments: anesthesia called for epidural Datetime: 11/06/2024 21:08 Cervix, Position: Midposition Datetime: 11/06/2024 20:10 Pain Location: Back Comfort Measures: Breathing/Relaxation; Coaching; Back Rub Given; Family Support; Anesthesia Notifi ed Datetime: 11/06/2024 17:48 Comments: tracing mom Datetime: 11/06/2024 17:25 Membrane Status: Ruptured Membranes Ruptured Date/Time: 11/06/2024 17:25 Membranes Rupture Method: Artificial Vaginal Exam Comments: head well applied Datetime: 11/06/2024 16:57 Antibiotics: Ampicillin IV 1 Gm Datetime: 11/06/2024 16:11 Patient Care Comments: sitting next to bed holding squat bar, spouse and tire regrooving machine operator for support Datetime: 11/06/2024 15:00 Contraction Comments: pt. standing by bar with provider, tire regrooving machine operator, and spouse present for support Datetime: 11/06/2024 13:26 MATERNAL ASSESSMENT Level of Consciousness: Alert Nausea/Vomiting: Denies RUQ Epigastric Pain: Denies Datetime: 11/06/2024 09:00 DTR's/Clonus: DTRs 2+; No Clonus Headache: Denies Breath Sounds, Left: Clear and Equal Breath Sounds, Right: Clear and Equal Datetime: 11/06/2024 00:00 Intensity IUP (mmHg): 70-140 Datetime: 11/05/2024 19:20 Amniotic Fluid Odor: None Cervical Ripening Agents: Cytotec @ Datetime: 11/05/2024 15:45 Pain Presence: None/Denies Pain Type: Cramping; Pressure Datetime: 11/05/2024 14:06 Monitor Interventions for FHR: Ultrasound Adjusted
== END 2024-11-08 15:10 | disposition home or self-care (01) | DRG 807 ==
LOC: FBP 08:23 → WFO 08:23 → FBP 08:26
PROVIDERS: ADMIT Nurse Practitioner; ATTEND Nurse Practitioner